=== PATIENT | female | born 1955 | race Caucasian/White ===

== ENCOUNTER 2018-01-11 13:16 | Emergency (ER) | payer MEDICARE, OTHER ==
[~2018-01-11] VITALS: Ht 160 cm; Wt 56.0 kg
[2018-01-11 13:32] VITALS: BP 181/77; PULSE 102; RESP 17; TEMP 97.7; O2SAT 100
--- NOTE | 2018-01-11 16:27 | PD ---
HPI Chief Complaint: Eye Problems/Injury Time Seen by Provider: 16:27 Travel History International Travel<30 days: No Contact w/Intl Traveler<30days: No Traveled to known affect area: No History of Present Illness HPI 62-year-old female with history of diabetic retinopathy who is legally blind in her right eye presents emergency department for evaluation of left eye pain and visual disturbance. Patient states that she is unable to make out faces with her left eye as of today. 5 days ago she began having pressure and pain around the left eye. She felt like she had is having a sinus infection but as the days progressed, she began seeing small lines in her peripheral vision. She states this is very similar to hemorrhages in the past. Denies any injury. No recent illnesses, fever, or chills. 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 She has no other symptoms to report. [facility] Past Medical History Diabetes: Yes Social History Tobacco Use: No Substance Use: No Allergies-Medications (Allergen,Severity, Reaction): Coded Allergies: No Known Allergies (Verified Allergy, Severe, 01/11/18) Reported Meds & Prescriptions Reported Meds & Active Scripts Active Polytrim Opth Drops (Polymyxin/Trimethoprim Sulfate) 10,000-0.1 Unit/Ml-% Soln 1 Drop LEFT EYE Q6HR Review of Systems Except as stated in HPI: all other systems reviewed are Neg Physical Exam Narrative GENERAL: Well-nourished, well-developed patient. SKIN: Focused skin assessment warm/dry. HEAD: Normocephalic. No tenderness elicited to palpation over the maxillary or frontal sinuses. No erythema or edema. EYES: No scleral icterus. Injection of the left sclera. Pupils are equal, slightly reactive. There is a slightly cloudy appearance to the left eye. EOMI. I am unable to adequately visualize inside the eye. Edmund-Pen readings of the left eye 21, 18, 18 NECK: Supple, trachea midline. No JVD or lymphadenopathy. CARDIOVASCULAR: Regular rate and rhythm without murmurs, gallops, or rubs. RESPIRATORY: Breath sounds equal bilaterally. No accessory muscle use. GASTROINTESTINAL: Abdomen soft, non-tender, nondistended. MUSCULOSKELETAL: No cyanosis, or edema. BACK: Nontender without obvious deformity. No CVA tenderness. Data Data Last Documented VS Vital Signs Date Time Temp Pulse Resp B/P (MAP) Pulse Ox O2 Delivery O2 Flow Rate FiO2 01/11/18 18:21 01/11/18 17:08 97 16 100 01/11/18 13:32 97.7 Orders Orders Iv Access Insert/Monitor (01/11/18 16:35) Proparacaine 0.5% Opth Soln (Alcaine 0.5 (01/11/18 16:45) ^ Other Nursing Orders (01/11/18 17:24) Ed Discharge Order (01/11/18 17:57) MDM Medical Decision Making Medical Screen Exam Complete: Yes Emergency Medical Condition: Yes Medical Record Reviewed: Yes Differential Diagnosis diabetic retinopathy vs acute ocular stroke vs conjunctivitis vs iritis vs acute closed angle glaucoma Narrative Course 62-year-old female presents emergency department for evaluation of left eye visual changes, concerned that she is hemorrhaging. I am unable to visualize inside the eye. I have contacted Dr. Ng who recommends following up in her office first thing Saturday. Edmund-Pen pressures are within normal limits. Due to the scleral injection, patient will be started on Polytrim drops. Patient is counseled on care. She agrees to return immediately with any acute worsening symptoms. Diagnosis Primary Impression: Conjunctivitis Qualified Codes: H10.9 - Unspecified conjunctivitis Additional Impressions: Visual disturbance History of diabetic retinopathy Referrals: Nina Ng MD call for appointment [facility] Saturday; THEY OPEN AT 8AM. THEY WILL GET YOU IN THAT DAY Primary Care Physician Additional Instructions: Avoid rubbing the eye Follow-up with a primary care provider Call Dr. Ng's office Saturday. They open at 8 AM. She will get you in that day for an appointment Return immediately with any acute worsening symptoms Med/Other Pt SpecificInfo: Prescription(s) given Scripts Polymyxin B-Trimethoprim Opth Drops (Polytrim Opth Drops) 10,000-0.1 Unit/Ml-% Soln 1 DROP LEFT EYE Q6HR for Mgmt Bacterial Infection, #1 BOTTLE 0 Refills Prov: Torres,Martine LYNN 01/11/18 Disposition: 01 DISCHARGE HOME Condition: Stable Martine Torres Jan 11, 2018 16:27
[2018-01-11] MEDS ORDERED: PROPARACAINE HCL 0.5% OPHT SOLN 15 ML BTL LEFT EYE ONE (16:45)
[2018-01-11 17:08] VITALS: BP 177/71; PULSE 97; RESP 16; O2SAT 100
[2018-01-11] MEDS ORDERED: POLY10O LEFT EYE (17:59)
== END 2018-01-11 18:21 | disposition home or self-care (01) ==
LOC: NEPD 13:16
DX: H10.9 Unspecified conjunctivitis (principal); H53.9 Unspecified visual disturbance; E11.319 Type 2 diabetes mellitus with unspecified diabetic retinopathy without macular edema; H54.8 Legal blindness, as defined in USA; H54.61 Unqualified visual loss, right eye, normal vision left eye
CPT/HCPCS: 99283